=== PATIENT | female | born 1940 | race Caucasian/White ===

== ENCOUNTER → 2016-12-02 | Outpatient (CLI) | payer MEDICARE, OTHER | LOC: HEART 5 13:26 | DX: I48.91 Unspecified atrial fibrillation (principal) ==

== ENCOUNTER 2020-10-01 06:05 | Inpatient (IN) | payer OTHER ==
[~2020-10-01] VITALS: Ht 165.1 cm; Wt 80.9 kg
[~2020-10-01 06:05] MED LIST: ALBUTEROL1.25 MG/3 INH; ASPIRIN CHEWABL81 MG PO; AUGMENTIN 875-1 EACH PO; AVAPRO300 MG PO; BREO ELLIPTA 11 EACH INH; BRILINTA 90 MG90 MG PO; CEFPODOXIME PR200 MG PO; DIGOX250 MCG PO; DIGOXIN250 MCG PO; DOXYCYCLINE HY100 M2 PO; ENTRESTO 49 MG1 EACH PO; ENTRESTO 97 MG1 EACH PO; GLUCOPHAGE500 MG PO; IMDUR ER TAB 6060 MG PO; INCRUSE ELLI62.5 MCG INH; IRON PO; K-DUR TAB 10 M10 MEQ PO; LASIX20 MG PO; LIPITOR40 MG PO; LOPRESSOR 50 MG50 MG PO; NORVASC10 MG PO; NORVASC5 MG PO; PANTOPRAZOLE SO40 MG PO; PLAVIX 75 MG TA75 MG PO; PREDNISONE 20 M20 MG GT; PROAIR HFA8.5 GM PO; THERAGRAN M TAB1 EA PO; TOPROL XL 100100 MG PO; TOPROL XL100 MG PO; VITAMIN D-40400 UNIT PO; VITAMIN D32000 UNI1 PO; XARELTO20 MG PO; [UNRECOGNIZED DRUG - OTHER]
[2020-10-01 06:30] LABS: HEMOGLOBIN 11.9 gm/dl (12.3-15.3); RED BLOOD COUNT 5.04 M/UL (4.00-5.10); WHITE BLOOD COUNT 19.4 K/UL (4.5-11.0)
[2020-10-01] MEDS ORDERED: PREDNISONE20 MG PO (13:41)
[2020-10-01] MEDS ORDERED: VENTOLIN HFA 66.7 GM INH (13:41)
[2020-10-01] MEDS ORDERED: ISOSORBIDE MONO30 MG PO (13:43)
[2020-10-01] MEDS ORDERED: GLUCOPHAGE 500500 MG PO (13:44)
[2020-10-01] MEDS ORDERED: VITAMIN C500 M4 PO (13:45)
[2020-10-02 03:13] LABS: HEMOGLOBIN 10.4 gm/dl (12.3-15.3)
[2020-10-02 03:22] LABS: RED BLOOD COUNT 4.51 M/UL (4.00-5.10); WHITE BLOOD COUNT 12.1 K/UL (4.5-11.0)
[2020-10-03 03:44] LABS: HEMOGLOBIN 11.5 gm/dl (12.3-15.3); WHITE BLOOD COUNT 12.2 K/UL (4.5-11.0)
[2020-10-03 03:45] LABS: RED BLOOD COUNT 4.97 M/UL (4.00-5.10)
[2020-10-04] MEDS ORDERED: HYDRALAZINE HCL25 MG PO (11:44)
[2020-10-04] MEDS ORDERED: FUROSEMIDE40 MG PO (11:44)
[2020-10-04] MEDS ORDERED: K-DUR TAB 20 M20 MEQ PO (11:57)
== END 2020-10-04 15:54 | disposition home health service (06) | DRG 291 ==
LOC: ER1 06:05 → PROG CARE 09:00 → CDU 09:00 → PROG CARE 11:45 → MED SURG 4 10-04 15:07 → PROG CARE 10-04 15:17
PROVIDERS: Family Medicine; Internal Medicine Cardiovascular Disease; Physician Assistant; ADMIT Internal Medicine Infectious Disease
DX: I11.0 Hypertensive heart disease with heart failure (principal); J18.9 Pneumonia, unspecified organism; I48.20 Chronic atrial fibrillation, unspecified; E87.2 Acidosis; I50.23 Acute on chronic systolic (congestive) heart failure; I25.5 Ischemic cardiomyopathy; E87.6 Hypokalemia; D72.829 Elevated white blood cell count, unspecified; E11.9 Type 2 diabetes mellitus without complications; I25.10 Atherosclerotic heart disease of native coronary artery without angina pectoris; J45.909 Unspecified asthma, uncomplicated; D53.9 Nutritional anemia, unspecified; I73.9 Peripheral vascular disease, unspecified; Z20.822 Contact with and (suspected) exposure to COVID-19; E78.5 Hyperlipidemia, unspecified; I44.7 Left bundle-branch block, unspecified; I27.20 Pulmonary hypertension, unspecified; Z59.0 Homelessness; Z87.891 Personal history of nicotine dependence; Z82.49 Family history of ischemic heart disease and other diseases of the circulatory system; Z79.52 Long term (current) use of systemic steroids; Z95.1 Presence of aortocoronary bypass graft; Z98.42 Cataract extraction status, left eye; Z98.41 Cataract extraction status, right eye; Z91.14 Patient's other noncompliance with medication regimen
CPT/HCPCS: ECHO; 0240U; 36415; 36600; 71045; 78452; 80048; 80053; 80162; 82550; 82553; 82803; 82962; 83605; 83735; 83874; 83880; 84100; 84132; 84484; 85025; 85610; 85730; 87040; 93005; 93017; 93306; 94640; 94664; 94760; 96374; 96375; 99285; A9502; J0456; J0696; J1120; J1940; J2785; J7030

== ENCOUNTER → 2020-10-31 | Outpatient (CLI) | payer MEDICARE, OTHER ==
[~2020-10-31] MED LIST changes: +FUROSEMIDE40 MG PO; +GLUCOPHAGE 500500 MG PO; +HYDRALAZINE HCL25 MG PO; +ISOSORBIDE MONO30 MG PO; +K-DUR TAB 20 M20 MEQ PO; +PREDNISONE20 MG PO; +VENTOLIN HFA 66.7 GM INH; +VITAMIN C500 M4 PO
== END ==
LOC: HEART 5 08:52
DX: R06.2 Wheezing (principal)
CPT/HCPCS: 94060

== ENCOUNTER 2020-11-01 21:30 | Emergency (ER) | payer MEDICARE, OTHER ==
[2020-11-02 02:12] LABS: RED BLOOD COUNT 5.13 M/UL (4.00-5.10); WHITE BLOOD COUNT 8.8 K/UL (4.5-11.0)
== END 2020-11-02 07:11 | disposition home or self-care (01) ==
LOC: ER1 21:30
PROVIDERS: Student in an Organized Health Care Education/Training Program
DX: I11.0 Hypertensive heart disease with heart failure (principal); I50.9 Heart failure, unspecified; E87.70 Fluid overload, unspecified; I25.10 Atherosclerotic heart disease of native coronary artery without angina pectoris; E11.9 Type 2 diabetes mellitus without complications; I48.91 Unspecified atrial fibrillation; J45.909 Unspecified asthma, uncomplicated; Z79.899 Other long term (current) drug therapy
CPT/HCPCS: 71045; 80053; 80162; 82550; 82553; 83735; 83874; 83880; 84100; 84484; 85025; 93005; 96374; 99285; J1940

== ENCOUNTER → 2020-11-06 | Outpatient (CLI) | payer MEDICARE, OTHER | LOC: RAD 13:51 | DX: R06.02 Shortness of breath (principal); J81.1 Chronic pulmonary edema | CPT/HCPCS: 71046 ==

== ENCOUNTER 2020-11-08 12:31 | Emergency (ER) | payer MEDICARE, OTHER ==
[2020-11-08 13:21] LABS: RED BLOOD COUNT 4.85 M/UL (4.00-5.10); WHITE BLOOD COUNT 7.4 K/UL (4.5-11.0)
== END 2020-11-08 15:41 | disposition home or self-care (01) ==
LOC: ER1 12:31
PROVIDERS: Physician Assistant Medical
DX: R05 Cough (principal); T46.0X5A Adverse effect of cardiac-stimulant glycosides and drugs of similar action, initial encounter; I48.91 Unspecified atrial fibrillation; E11.9 Type 2 diabetes mellitus without complications; I10 Essential (primary) hypertension; Z79.84 Long term (current) use of oral hypoglycemic drugs; Z79.899 Other long term (current) drug therapy; Z95.1 Presence of aortocoronary bypass graft
CPT/HCPCS: 71045; 80053; 80162; 82550; 82553; 83874; 83880; 84484; 85025; 93005; 99284

== ENCOUNTER → 2021-01-03 | Outpatient (CLI) | payer MEDICARE, OTHER ==
[~2021-01-03] MED LIST changes: +AMIODARONE HCL200 MG PO; +HYDROCODON-ACE1 EAC4 PO; +LEVOFLOXACIN500 MG PO; +SPIRONOLACTONE25 MG PO; +[UNRECOGNIZED DRUG - OTHER] PO
== END ==
LOC: HEART 5 10-22 08:00
DX: I50.42 Chronic combined systolic (congestive) and diastolic (congestive) heart failure (principal); I25.5 Ischemic cardiomyopathy
CPT/HCPCS: 93306

== ENCOUNTER 2021-03-15 07:12 | Outpatient (CLI) | payer MEDICARE, OTHER ==
[~2021-03-15] VITALS: Ht 165.1 cm; Wt 75.8 kg
[~2021-03-15 07:12] MED LIST changes: -AMIODARONE HCL200 MG PO; -HYDROCODON-ACE1 EAC4 PO; -LEVOFLOXACIN500 MG PO; -SPIRONOLACTONE25 MG PO; -[UNRECOGNIZED DRUG - OTHER] PO
[2021-03-15] MEDS ORDERED: [UNRECOGNIZED DRUG - OTHER] PO (07:57)
[2021-03-15] MEDS ORDERED: SPIRONOLACTONE25 MG PO (07:58)
[2021-03-15] MEDS ORDERED: LEVOFLOXACIN500 MG PO (11:41)
[2021-03-15] MEDS ORDERED: HYDROCODON-ACE1 EAC4 PO (11:41)
[2021-03-15] MEDS ORDERED: AMIODARONE HCL200 MG PO ×2 (11:41)
== END 2021-03-16 10:30 | disposition home or self-care (01) ==
LOC: CATH 07:12 → PROG CARE 13:56 → CATH 03-16 10:30
DX: I25.5 Ischemic cardiomyopathy (principal); I48.0 Paroxysmal atrial fibrillation; I50.22 Chronic systolic (congestive) heart failure; I42.0 Dilated cardiomyopathy; I25.10 Atherosclerotic heart disease of native coronary artery without angina pectoris; I25.2 Old myocardial infarction; Z87.891 Personal history of nicotine dependence; Z95.1 Presence of aortocoronary bypass graft; Z95.5 Presence of coronary angioplasty implant and graft; R73.9 Hyperglycemia, unspecified; I73.9 Peripheral vascular disease, unspecified; R94.39 Abnormal result of other cardiovascular function study; Z79.01 Long term (current) use of anticoagulants; I44.7 Left bundle-branch block, unspecified; E78.5 Hyperlipidemia, unspecified; I10 Essential (primary) hypertension
CPT/HCPCS: 33225; 33249; 71045; 82962; 92960; 93005; 93641; 99152; 99153; C1769; C1777; C1882; C1898; C1900; J1644; J1742; J2250; J3010; J3370; J7040; J7050; J7070; Q9965

== ENCOUNTER → 2021-05-13 | Outpatient (CLI) | payer MEDICARE, OTHER ==
[~2021-05-13] MED LIST changes: +AMIODARONE HCL200 MG PO; +HYDROCODON-ACE1 EAC4 PO; +LEVOFLOXACIN500 MG PO; +SPIRONOLACTONE25 MG PO; +[UNRECOGNIZED DRUG - OTHER] PO
== END ==
LOC: HEART 5 08:58
DX: Z79.899 Other long term (current) drug therapy (principal)
CPT/HCPCS: 94010; 94729

== ENCOUNTER → 2021-07-12 | Outpatient (CLI) | payer MEDICARE, OTHER | LOC: RAD 11:14 | DX: J40 Bronchitis, not specified as acute or chronic (principal); J90 Pleural effusion, not elsewhere classified | CPT/HCPCS: 71046 ==

== ENCOUNTER → 2021-07-19 | Outpatient (CLI) | payer MEDICARE, OTHER | LOC: ECHO 09:29 | DX: I50.22 Chronic systolic (congestive) heart failure (principal); I27.20 Pulmonary hypertension, unspecified; I08.3 Combined rheumatic disorders of mitral, aortic and tricuspid valves; R06.02 Shortness of breath; I25.5 Ischemic cardiomyopathy | CPT/HCPCS: ECHO; 93306 ==

== ENCOUNTER → 2021-08-02 | Outpatient (CLI) | payer MEDICARE, OTHER ==
[2021-08-02 13:15] LABS: BORDETELLA PARAPERTUSSIS Not Detected (Not Detectd); BORDETELLA PERTUSSIS Not Detected (Not Detectd); CHLAMYDIA PNEUMONIAE Not Detected (Not Detectd); CORONAVIRUS HKU1 Not Detected (Not Detectd); CORONAVIRUS NL63 Not Detected (Not Detectd); CORONAVIRUS OC43 Not Detected (Not Detectd); CORONOAVIRUS 229E Not Detected (Not Detectd); HUMAN METAPNEUMOVIRUS Not Detected (Not Detectd); HUMAN RHINOVIRUS/ENTEROVIRUS Not Detected (Not Detectd); INFLUENZA A Not Detected (Not Detectd); INFLUENZA B Not Detected (Not Detectd); MYCOPLASMA PNEUMONIAE Not Detected (Not Detectd); PARAINFLUENZA VIRUS 1 Not Detected (Not Detectd); PARAINFLUENZA VIRUS 2 Not Detected (Not Detectd); PARAINFLUENZA VIRUS 3 Not Detected (Not Detectd); PARAINFLUENZA VIRUS 4 Not Detected (Not Detectd); RESPIRATORY SYNCYTIAL VIRUS Not Detected (Not Detectd)
[2021-08-02 15:57] LABS: SARS-CoV-2 NOT DETECTED (Not Detectd)
== END ==
LOC: LAB 12:44
PROVIDERS: Physician Assistant
DX: J06.9 Acute upper respiratory infection, unspecified (principal); Z20.822 Contact with and (suspected) exposure to COVID-19
CPT/HCPCS: 87633

== ENCOUNTER 2021-09-18 21:30 | Emergency (ER) | payer MEDICARE, OTHER ==
[2021-09-18 22:12] LABS: HEMOGLOBIN 10.7 gm/dl (12.3-15.3); RED BLOOD COUNT 3.64 M/UL (4.00-5.10); WHITE BLOOD COUNT 10.7 K/UL (4.5-11.0)
== END 2021-09-19 03:31 | disposition home or self-care (01) ==
LOC: ER1 21:30
PROVIDERS: Physician Assistant Medical
DX: I50.22 Chronic systolic (congestive) heart failure (principal); J45.909 Unspecified asthma, uncomplicated; I25.10 Atherosclerotic heart disease of native coronary artery without angina pectoris; I77.9 Disorder of arteries and arterioles, unspecified; I11.0 Hypertensive heart disease with heart failure; E78.5 Hyperlipidemia, unspecified; I27.20 Pulmonary hypertension, unspecified; E11.9 Type 2 diabetes mellitus without complications; Z95.1 Presence of aortocoronary bypass graft; Z79.01 Long term (current) use of anticoagulants; Z79.02 Long term (current) use of antithrombotics/antiplatelets; Z79.899 Other long term (current) drug therapy
CPT/HCPCS: 71045; 80053; 82550; 82553; 83880; 84484; 85025; 93005; 94664; 96374; 99285; J1940

== ENCOUNTER → 2021-09-24 | Outpatient (CLI) | payer MEDICARE, OTHER | LOC: HEART 5 09:24 | DX: J98.01 Acute bronchospasm (principal); R94.2 Abnormal results of pulmonary function studies | CPT/HCPCS: 94060; 94729 ==

== ENCOUNTER → 2021-10-01 | Outpatient (CLI) | payer MEDICARE, OTHER | LOC: US 13:13 | DX: N18.32 Chronic kidney disease, stage 3b (principal) ==

== ENCOUNTER → 2021-10-02 | Outpatient (CLI) | payer MEDICARE, OTHER ==
[2021-10-02 12:12] LABS: RED BLOOD COUNT 4.18 M/UL (4.00-5.10)
[2021-10-03 11:17] LABS: CREATININE, URINE 16.7 mg/dL (Not Estab.); MICROALB/CREAT RATIO <18 (0-29)
== END ==
LOC: LAB 10:53
PROVIDERS: Internal Medicine Nephrology
DX: N18.32 Chronic kidney disease, stage 3b (principal); D63.1 Anemia in chronic kidney disease
CPT/HCPCS: 36415; 80048; 81001; 82043; 82570; 82728; 83540; 83550; 84156; 85025

== ENCOUNTER 2021-10-11 16:11 | Emergency (ER) | payer MEDICARE, OTHER ==
[2021-10-11] MEDS ORDERED: OMNICEF 300 MG300 MG PO (18:35)
== END 2021-10-11 18:54 | disposition home or self-care (01) ==
LOC: ER1 16:11
DX: S90.422A Blister (nonthermal), left great toe, initial encounter (principal); E11.9 Type 2 diabetes mellitus without complications; I11.9 Hypertensive heart disease without heart failure
CPT/HCPCS: 73660; 87070; 87205; 99283

== ENCOUNTER → 2021-10-21 | Outpatient (CLI) | payer MEDICARE, OTHER ==
[~2021-10-21] MED LIST changes: +OMNICEF 300 MG300 MG PO
== END ==
LOC: KOH-I 14:00
DX: I73.9 Peripheral vascular disease, unspecified (principal)
CPT/HCPCS: 93925

== ENCOUNTER 2021-11-08 18:26 | Emergency (ER) | payer MEDICARE, OTHER ==
[2021-11-08] MEDS ORDERED: CEPHALEXIN500 MG PO (19:48)
== END 2021-11-08 20:25 | disposition home or self-care (01) ==
LOC: ER1 18:26
DX: L03.311 Cellulitis of abdominal wall (principal); I25.5 Ischemic cardiomyopathy; E11.51 Type 2 diabetes mellitus with diabetic peripheral angiopathy without gangrene; Z95.0 Presence of cardiac pacemaker; Z95.1 Presence of aortocoronary bypass graft; Z79.84 Long term (current) use of oral hypoglycemic drugs
CPT/HCPCS: 99283

== ENCOUNTER 2021-12-30 10:59 | Emergency (ER) | payer MEDICARE, OTHER ==
[~2021-12-30 10:59] MED LIST changes: +CEPHALEXIN500 MG PO
[2021-12-30] MEDS ORDERED: HYDROCODON-ACE1 EAC4 PO (16:30)
== END 2021-12-30 16:49 | disposition home or self-care (01) ==
LOC: ER1 10:59
DX: S70.02XA Contusion of left hip, initial encounter (principal); E11.9 Type 2 diabetes mellitus without complications; I25.10 Atherosclerotic heart disease of native coronary artery without angina pectoris; I10 Essential (primary) hypertension; E78.5 Hyperlipidemia, unspecified; Z95.1 Presence of aortocoronary bypass graft; W19.XXXA Unspecified fall, initial encounter
CPT/HCPCS: 72192; 73502; 73552; 99284